=== PATIENT | female | born 1975 | race Caucasian/White ===

== ENCOUNTER 2018-10-12 06:33 | Day surgery (SDC) | payer OTHER ==
[2018-10-12] MEDS ORDERED: LIDOCAINE 2% 1000 MG/50 ML VIAL INJ ONE (10:46)
[2018-10-12] MEDS ORDERED: fentaNYL 0.05 MG/ML VIAL ONE (11:06)
== END 2018-10-12 12:30 | disposition home or self-care (01) ==
LOC: MDS 06:33 → MMU 06:37 → MDS 12:30
PROVIDERS: ATTEND Internal Medicine Gastroenterology
DX: K76.0 Fatty (change of) liver, not elsewhere classified (principal); F41.9 Anxiety disorder, unspecified; E66.3 Overweight; Z79.899 Other long term (current) drug therapy; Z68.25 Body mass index [BMI] 25.0-25.9, adult
CPT/HCPCS: 47000; 76942; 81025; 88307; 88313; J2001; J3010; Q0092